=== PATIENT | female | born 2000 | race Caucasian/White ===

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

== ENCOUNTER 2024-12-27 01:56 | Emergency (ER) | payer BC, OTHER | END 2024-12-27 03:20 | disposition home or self-care (01) | LOC: JD.ED 01:56 | DX: I83.892 Varicose veins of left lower extremity with other complications (principal); E66.9 Obesity, unspecified; Z90.49 Acquired absence of other specified parts of digestive tract; Z68.44 Body mass index [BMI] 60.0-69.9, adult | CPT/HCPCS: 12001; 99282; 99283 ==